=== PATIENT | male | born 1950 | race Caucasian/White ===

== ENCOUNTER 2017-11-03 07:53 | Day surgery (SDC) | payer OTHER, BC ==
--- NOTE | 2017-11-02 16:32 | RAD REPORT ---
EXAM DESCRIPTION: Nivia Lee (2 Views)11/02/2017 4:26 pm CLINICAL HISTORY: Hypertension/preop exam for hernia repair COMPARISON: 2007 FINDINGS: The lungs appear clear of acute infiltrate. The heart is normal size IMPRESSION: No acute abnormalities displayed
[2017-11-02 17:06] LABS: Absolute Lymphocytes (CBC) 2.8 K/uL (0.7-4.9); Absolute Monocytes 0.7 K/uL (0.1-1.3); Absolute Neutrophil 4.4 K/uL (1.8-8.0); Basophils % 0.9 % (0-1.3); Eosinophils % 3.8 % (0-4.4); Lymphocytes % 34.1 % (15.3-44.8); MCH 32.2 pg (27.0-35.0); MCV 95.5 fL (80-100); MPV 11.1 fL (7.6-11.3); Monocytes % 8.1 % (3.3-12.3); RBC Red Blood Cell Count 5.02 M/uL (4.33-5.43)
[2017-11-02 17:28] LABS: Potassium 4.1 mmol/L (3.5-5.1)
[2017-11-03] MEDS ORDERED: PROPOFOL 200 MG/20 ML VIAL IV ONE (08:23)
[2017-11-03] MEDS ORDERED: LIDOCAINE 2% MPF 5 ML VIAL ONE (08:24)
[2017-11-03] MEDS ORDERED: FENTANYL CITR 100 MCG/2 ML ONE (08:24)
[2017-11-03] MEDS ORDERED: MIDAZOLAM HCL 2 MG/2 ML INJ ONE ×2 (08:24→08:53)
[2017-11-03] MEDS ORDERED: CEFAZOLIN/SWI 1gm 1 GM/10 ML SYR ONE (08:25)
[2017-11-03] MEDS ORDERED: Ringers Lactate 1,000 ML IV ONE (08:25)
[2017-11-03] MEDS ORDERED: ONDANSETRON HCL 40 MG/20 ML VIAL ONE (08:26)
[2017-11-03] MEDS ORDERED: ROCURONIUM 50 MG/5 ML VIAL IV ONE (08:27)
[2017-11-03] MEDS ORDERED: KETOROLAC 30 MG/ML INJ ONE (09:17)
[2017-11-03] MEDS ORDERED: GLYCOPYRROLATE 0.2 MG/ML SYR ONE (09:27)
--- NOTE | 2017-11-03 09:34 | P.BOP ---
Preoperative diagnosis: incarcerated ventral hernia Postoperative diagnosis: same Primary procedure: Open repair of incarcerated ventral hernia Unified Communications Engineer: ESTRADA SIMMS (SENIOR BIOINFORMATICS SPECIALIST) Estimated blood loss: <10cc Specimen: hernia sac Findings: incarcerated omentum Anesthesia: General Complications: None Transferred to: Recovery Room Condition: Good
[2017-11-03] MEDS ORDERED: CODEINE 30MG/APAP 300MG TAB ONE (10:21)
--- NOTE | 2017-11-03 22:35 | OP ---
Date of Procedure: 11/03/2017 Surgeon: Sreekanth Ac MD Lure Maker: Shanae Obrien. Diagnosis: Incarcerated ventral hernia. Postoperative Diagnosis: Incarcerated ventral hernia. Procedure: Open repair of an incarcerated ventral hernia. Specimen: Hernia sac. Findings: Incarcerated omentum. Anesthesia: General plus local. Indication For Procedure: This is a case of a male, who comes to us with an incarcerated tender vent ral hernia. Benefits, alternatives, and risks of repair were fully explained which include but are n ot limited to infection, bleeding, damage to adjacent structures, anesthesia complication, recurrence , NH, and even . He also understands this may not relieve any symptoms. He might need more jose luis n one surgical intervention. He understood and signed a consent. Description Of Procedure: The patient was brought to the operating room and placed in supine positio n. Anesthesia was achieved without complication. The abdominal area was prepped and draped in usual sterile fashion. Marcaine 0.5% was injected for local anesthetic, followed by sharp incision of the skin in the infraumbilical region. The incision was carried down to fascia. We noticed a hernia de fect, removed hernia sac from the skin. There was omentum incarcerated in that area with some adhesi ons that were carefully removed. The omentum was retracted back into the abdominal cavity after full y inspected it and noticed to be viable. Hernia sac was removed, fascial edges were cleaned, and we proceeded to close the defects with multiple stitches of #1 Prolene interrupted in a [id number] fashion. The fit was closed completely without tension. The area was irrigated. Subcutaneous tissu e was closed with 3-0 chromic and skin in a subcuticular fashion with 3-0 chromic and Steri-Strips on top. Sponge count and instrument counts were correct. The patient tolerated the procedure well. T he patient was sent to Recovery in stable condition. Disposition: Home. Activity: As tolerated. No heavy lifting. Followup: Follow up in my office in 1 week. Call for appointment on [phone]. Keep the area dry fo r 48 hours, then may shower. Keep Steri-Strips intact. Medications: See orders. HM/MODL Voice ID: [id number] Report ID: [id number]
== END 2017-11-03 11:10 | disposition home or self-care (01) ==
LOC: OR 07:53
PROVIDERS: ATTEND Surgery
PROC: 0WQF0ZZ Repair Abdominal Wall, Open Approach (ICD-10-PCS; principal; 2017-11-03 09:00)
DX: K43.6 Other and unspecified ventral hernia with obstruction, without gangrene (principal); I10 Essential (primary) hypertension; I48.91 Unspecified atrial fibrillation; E07.9 Disorder of thyroid, unspecified; Z79.01 Long term (current) use of anticoagulants; Z80.49 Family history of malignant neoplasm of other genital organs; Z83.3 Family history of diabetes mellitus
CPT/HCPCS: 36415; 49561; 71046; 80048; 85025; 88302; J0690; J2250; J2405; J3010